=== PATIENT | female | born 1945 | race Caucasian/White ===

== ENCOUNTER → 2017-11-28 | Day surgery (SDC) | payer OTHER ==
--- NOTE | 2017-11-27 11:54 | Diagnostic Imaging Report ---
PROCEDURE: Frontal and lateral views of the chest. COMPARISON: None. INDICATIONS: PREOPERATIVE CHEST XRAY FOR CARPAL TUNNEL SURGERY FINDINGS: Lines/tubes: None. Lungs: The lungs are well inflated and grossly clear. There is no evidence of pneumonia or pulmonary edema. Pleura: There is no pleural effusion or pneumothorax. Heart and mediastinum: Cardiac silhouette is borderline enlarged. Vasculature is normal. Bones: No acute bony abnormality. Degenerative changes in the thoracic spine. Partially visualized cervical spine fusion hardware. IMPRESSION: 1. borderline enlarged cardiac silhouette, without acute cardiopulmonary disease. Emiliano Julien M.D. Dictated by: Emiliano Julien M.D. on 11/27/2017 at 11:57 Electronically approved by: Emiliano Julien M.D. on 11/27/2017 at 11:57
[2017-11-27 11:57] LABS: BASOPHILS % 0.3 % (0.0-1.0); EOSINOPHILS # (AUTO) 0.1 (0.0-0.4); EOSINOPHILS % 1.6 % (0.0-6.0); HEMATOCRIT 43.7 % (34.2-44.1); HEMOGLOBIN 14.3 g/dL (12.0-16.0); LYMPHOCYTES # (AUTO) 2.5 (1.0-3.2); LYMPHOCYTES % 43.5 % (18.0-39.1); MEAN CORPUSCULAR HEMOGLOBIN 30.6 pg (28-32); MEAN CORPUSCULAR HGB CONC 32.7 g/dL (31-35); MEAN CORPUSCULAR VOLUME 93.6 fL (81-99); MONOCYTES # (AUTO) 0.6 (0.2-0.8); MONOCYTES % 10.6 % (4.4-11.3); NEUTROPHILS # (AUTO) 2.5 (2.1-6.9); NEUTROPHILS % 43.8 % (38.7-80.0); PLATELET COUNT 207 x10e3/uL (140-360); RED BLOOD COUNT 4.67 x10e6/uL (3.6-5.1); RED CELL DISTRIBUTION WIDTH 13.1 % (11.7-14.4)
[~2017-11-28] MED LIST: ACETAMINOPHEN 1000 MG/100 ML 100 ML IV ONE; BUPIVACAINE HCL 0.5% INJ 30 ML VIAL INJ ONE; CEFAZOLIN SOD 2 GM/D5W 50ML 50 ML IV ONE; DEXAMETHASONE SOD PHOS INJ 4 MG/ML VIAL ONE; FENTANYL CITRATE/PF 100MCG/2 ML INJ ONE; KETOROLAC TROMETHAMINE 30 MG/ML VIAL ONE; LIDOCAINE HCL 2% LOCAL INJ 5 ML SDV VIAL INJ ONE; METOCLOPRAMIDE HCL 10 MG/2ML VIAL ONE; MIDAZOLAM HCL 2 MG/2 ML VIAL ONE; MOBIC7.5 MG PO; MORPHINE SULFATE 2 MG/ML SYR ONE; ONDANSETRON HCL 4 MG ORAL DISINTEGRATING TAB ONE; ONDANSETRON HCL INJ 2 MG/ML VIAL ONE; PROPOFOL IV EMULSION 10 MG/ML 20 ML VIAL ONE; SEVOFLURANE INHAL SOLN 250 ML PEN BTL ONE; SINGULAIR10 MG PO; SYNTHROID100 MCG PO
--- OUTSIDE RECORDS SUMMARY | 2017-11-28 05:40 | XMS REPORT ---
Author Author [facility] Address Unknown Phone Unavailable Care Team Providers Care Conservation Coordinator Name Role Phone KADY HUNT Unavailable Unavailable Problems This patient has no known problems. Allergies, Adverse Reactions, Alerts This patient has no known allergies or adverse reactions. Medications This patient has no known medications. Results Test Description Test Time Test Comments Text Results Atomic Results Result Comments CHEST 2 VIEWS [place] [address] Patient Name: SUKHDEEP PARRA MR #: [id number] : 1945 Age/Sex: 72/F Req # : [id number] Adm Physician: Ordered by: CASSIUS TAYLOR MD Report #: [id number] Location: OR Room/Bed: Procedure: [id number] DX/CHEST 2 VIEWS Exam Date: 11/27/17 Exam Time: 1135 REPORT STATUS: Signed PROCEDURE: Frontal and lateral views of the chest. COMPARISON: None. INDICATIONS: PREOPERATIVE CHEST XRAY FOR CARPAL TUNNEL SURGERY FINDINGS: Lines/tubes: None. Lungs : The lungs are well inflated and grossly clear. There is no evidence of pneumonia or pulmonary edema. Pleura: There is no pleural effusion or pneumothorax. Heart and mediastinum: Cardiac silhouette is borderline enlarged. Vasculature is normal. Bones: No acute bony abnormality. Degenerative changes in the thoracic spine. Partially visualized cervical spine fusion hardware. IMPRESSION: 1. borderline enlarged cardiac silhouette, without acute cardiopulmonary disease. Keven Julien M.D. Dictated by: Keven Julien M.D. on 11/27/2017 at 11:57 Electronically approved by: Keven Julien M.D. on 11/27/2017 at 11 :57 Dictated By: KEVEN JULIEN MD [id number] Transcribed By: JIM on 11/27/17 1157 COPY TO: CASSIUS TAYLOR MD
--- NOTE | 2017-11-29 09:07 | Operative Report ---
DATE OF PROCEDURE: November 28, 2017 PREOPERATIVE DIAGNOSES: 1. Right carpal tunnel syndrome. 2. Right long and ring finger triggers. POSTOPERATIVE DIAGNOSES: 1. Right carpal tunnel syndrome. 2. Right long and ring finger triggers. OPERATION/PROCEDURE PERFORMED: Patient underwent an open right carpal tunnel release as well as release of the A1 stephanie for the right long and right ring finger. MEDICAL/SURGERY REGISTERED NURSE: None. BLOOD LOSS: Less than 10 mL. IV FLUIDS: Per the anesthesia record. BRIEF DESCRIPTION OF PATIENT'S OPERATIVE PROCEDURE: Ms. Lopez was taken to the operating room and placed in the supine position on operating room table. Following induction of general anesthesia as well as endotracheal intubation, the patient's right upper extremity was examined under anesthesia. Examination of right upper extremity demonstrated no gross abnormalities to the forearm or hand. The patient had palpable nodules at the level of the A1 stephanie for both the ring and long finger. She had generalized stiffness in her fingers and catching and locking with flexion of the long and ring fingers passively. The patient's upper extremity was prepped and draped in standard surgical fashion. The case was begun by performing the right carpal tunnel release. Incision was created along the thenar palmar crease. This incision was carried through skin only. Blunt dissection was used to deepen the incision to the level of the transverse carpal ligament. A hemostat was placed beneath the transverse carpal ligament. The transverse carpal ligament was then divided in line with the skin incision. The floor of the carpal canal was then evaluated and found to have no abnormalities. Attention was then turned to the ring finger A1 stephanie. Incision was created over the level of the A1 stephanie. This incision was carried through skin only. Blunt dissection was used to deepen the incision, and the A1 stephanie was isolated with retractors on both sides. The A1 stephanie was then divided in line with the skin incision. The finger was placed through flexion, there was no longer any catching or locking in the finger. The tendon was found to have no significant abnormalities. An incision was then created over the long finger A1 stephanie. Blunt dissection was used to isolate the stephanie. Retractors were used to protect the neurovascular structures and isolate the A1 stephanie. The A1 stephanie was then divided in line with the skin incision. The finger was then again placed through range of motion and there was no catching or locking of the digit. There was no significant abnormality to the tendon. All wounds were copiously irrigated. The wounds were then closed in a single layer fashion. Sterile dressings were applied, and the patient was awakened and taken to the postanesthesia care unit in stable condition. Job#: [id number]
== END | disposition home or self-care (01) ==
LOC: OR 05:39
PROVIDERS: ATTEND Specialist
DX: M65.331 Trigger finger, right middle finger (principal); M65.341 Trigger finger, right ring finger; G56.03 Carpal tunnel syndrome, bilateral upper limbs; M19.041 Primary osteoarthritis, right hand; M24.641 Ankylosis, right hand; M19.042 Primary osteoarthritis, left hand; G89.29 Other chronic pain; M32.9 Systemic lupus erythematosus, unspecified; E03.9 Hypothyroidism, unspecified; Z01.810 Encounter for preprocedural cardiovascular examination; Z01.812 Encounter for preprocedural laboratory examination; Z01.818 Encounter for other preprocedural examination; Z68.35 Body mass index [BMI] 35.0-35.9, adult
CPT/HCPCS: 26055 ×2; 36415; 64721; 71046; 85025; 93005; J1100; J1885; J2001; J2250; J2270; J2405; J2765